=== PATIENT | female | born 1960 | race Caucasian/White ===

== ENCOUNTER 2017-01-27 13:48 | Emergency (ER) | payer OTHER ==
--- NOTE | 2017-01-27 15:48 | DIAGNOSTIC IMAGING REPORT ---
PROCEDURE: CT ABDOMEN/PELVIS W/O CONTRAST INDICATION: ABDOMINAL PAIN TECHNIQUE: Axial CT images were obtained through the abdomen and pelvis without IV contrast. Coronal and sagittal reformations were created. COMPARISON: 06/01/2006 FINDINGS: Clear lung bases. Normal sized heart. No hiatal hernia. The unenhanced appearance of the liver, gallbladder, adrenal glands, kidneys, pancreas and spleen is normal. The abdominal aorta is normal in its course and caliber with moderate to heavy distal aortic and biiliac atherosclerosis. There are no suspicious calcifications, retroperitoneal adenopathy or masses. The stomach and small bowel are normal. There is a long segments of colonic decompression, wall thickening, and mild pericolonic inflammation (15 cm) involving the descending colon to the proximal sigmoid. No extraluminal gas, diverticula, or adjacent fluid. Elsewhere in the colon, there are multiple areas of solid retained stool. The rectum is decompressed. The unenhanced appearance of the uterus, ovaries, urinary bladder, pelvic vessels, and pelvic bowel loops is normal. Normal appendix. No suspicious calcifications, free pelvic fluid or mass. Intact osseous structures. IMPRESSION: 1. Nonspecific, long segment colitis involving the descending colon. No evidence of adjacent perforation or abscess. Likely infectious or inflammatory. 2. Moderate retained solid stool throughout the colon. 3. Moderate atherosclerotic calcification in the distal aorta at the bifurcation may result in lower extremity inflow disease. Correlate clinically. 4. Findings discussed with Sharath Marlow in the emergency room. All CT scans at this facility use dose modulation, iterative reconstruction, and/or weight-based dosing when appropriate to reduce radiation dose to as low as reasonably achievable.
--- NOTE | 2017-01-27 16:21 | ED ORDER SUMMARY ---
..... Patient: IRENE GOODMAN OrderSheet [facility] VisitID: [id number] [address] [place] [address] 56y, F Registration Date/Time: 01/27/2017 ORDER SHEET Weight: 57.6 kg (stated) Allergies: Erythromycin GENERAL ORDERS: CBC w Diff Urgent (14:04 01/27/2017 EKoroleva P.A.-C) (Ack 14:06 KHoerner) (14:11 JBoardley R.N.) CMP Urgent (14:04 01/27/2017 EKoroleva P.A.-C) (Ack 14:06 KHoerner) (14:11 JBoardley R.N.) UA-Culture if indicated Urgent (14:04 01/27/2017 EKoroleva P.A.-C) (Ack 14:06 KHoerner) (16:26 JRomanelli R.N.) Lipase Urgent (14:04 01/27/2017 EKoroleva P.A.-C) (Ack 14:06 KHoerner) (14:11 JBoardley R.N.) PCT (Procalcitonin) Urgent (14:04 01/27/2017 EKoroleva P.A.-C) (Ack 14:06 KHoerner) (14:11 JBoardley R.N.) Lactate, Serum Urgent (14:04 01/27/2017 EKoroleva P.A.-C) (Ack 14:06 KHoerner) (14:49 JRomanelli R.N.) CT Abd/Pel w Cont (No) (see lab) Urgent (14:30 01/27/2017 EKoroleva P.A.-C) (Ack 14:31 KHoerner) (Cancelled: Other14:49 EKoroleva P.A.-C) CT Abd/Pel wo Cont Urgent (14:49 01/27/2017 EKoroleva P.A.-C) (Ack 14:50 KHoerner) (15:05 KHoerner) MEDICATION ORDERS: Macrobid PO 100 mg (NOW) (16:20 01/27/2017 Huey Gray) (16:43 Yevgeniy Coulter) IV FLUIDS: IV NS : initial bolus 500 mL (1000 mL/hr), then 500 mL/hr for X1 (NOW); Dennis (14:03 01/27/2017 Huey Gray) (14:12 Hal R.N.) Zofran IV 4 mg (NOW) (14:10 01/27/2017 Hal Vasquez.N. per protocol) (14:13 Hal R.N.) ORDER SHEET NOTES: [Electronically signed by Radha Marlow P.A.-C (16:26 01/27/2017)] [Electronically signed by Jose Donnelly R.N. (17:13 01/27/2017)] [Electronically locked/signed by Jose Donnelly R.N. (17:13 01/27/2017)]
--- NOTE | 2017-01-27 16:21 | ED NURSING NOTES ---
Clinical Report - Nurses [facility] [place] [address] 01/27/2017 13:50 [id number] Triage time 13:55 Jan 27 2017. Acuity: LEVEL 3. Chief Complaint: ABDOMINAL PAIN and NAUSEA. Alert. FELIX COMA SCORE: [place] Coma Scale: 15- eyes open spontaneously (4); best verbal response- oriented x 4 (5); best motor response- obeys commands (6). --14:14 Jose Donnelly R.N. 13:59 01/27/17. BP: 139/97. HR: 111. RR: 16. O2 saturation: 99%. Temp: 98.3 F (oral). Pain level now: 8/10. Additional comments: LLQ abdominal pain. --14:14 Jose Donnelly R.N. Weight: 57.6 kg stated. Height/Length: 62 inches Per Patient. BMI: 23.2. --14:14 Jose Donnelly R.N. Medications Aspirin Oral (Tablet Chewable 81 mg) 1 tablet, daily. Diltiazem HCl Oral 240 mg, daily. Gabapentin Oral. --14:03 Jose Donnelly R.N. Simvastatin Oral 20 mg, daily. --14:05 Jose Donnelly R.N. Medication/allergy information source: the patient. --14:14 Jose Donnelly R.N. Allergies Erythromycin. Definite Moderate (abdominal pain) --14:09 Jose Donnelly R.N. History Arrived by private vehicle. Historian: patient. Accompanied by family. Primary physician (Sanam). ( Q Abdominal Pain. Sent by [facility] for possible diverticulitis.). Onset. (about 2 days ago). She has had nausea and abdominal pain. No vomiting or diarrhea. Last oral intake by patient was (3 days ago). 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 PAST MEDICAL HX: Immunizations: up-to-date. The patient is post-menopausal. SOCIAL HX: Light tobacco smoker (cigarette)- less than 1/2 a pack per day. No alcohol use or drug use. No recent travel. No infectious disease exposure. No known contact with a sick individual. ABUSE ASSESSMENT: No report of abuse. FALL RISK ASSESSMENT: Fall risk assessment completed. No fall risk identified. NUTRITIONAL RISK ASSESSMENT: The nutritional risk assessment revealed no deficiencies. FUNCTIONAL ASSESSMENT: Functional assessment: no impairments noted. LEARNING NEEDS ASSESSMENT: The learning needs assessment revealed no barriers. SKIN INTEGRITY ASSESSMENT: Skin integrity risk assessment completed. No skin integrity risk identified. --14:14 Jose Donnelly R.N. PROBLEMS: Upper Extremity Pain. Arrhythmia. Atypical Chest Pain. Tetanus Status. Immunizations. LNMP - Last Normal Menstrual Period. Restless Legs Syndrome. Headache. Acute Otalgia. Hypertension. Hyperlipidemia. Chronic Back Pain. --14:06 Jose Donnelly R.N. Neck Pain. --14:11 Jose Donnelly R.N. ETOH hx. Pancreatitis. --14:14 Jose Donnelly R.N. ADDITIONAL SURGERIES: Dental Surgery. Laparoscopy. Tubal Ligation. --14:06 Jose Donnelly R.N. Interventions ID and allergy band on patient. To treatment room. --14:14 Jose Donnelly R.N. PHYSICAL ASSESSMENT Ambulatory to room. GENERAL / NEURO / PSYCH: Alert. Oriented X 4. Appears in pain. HEENT: Mucous membranes are pink. RESPIRATORY: Respirations not labored. CVS: Normal sinus rhythm noted. GI / : Abdominal tenderness in the left lower quadrant. SKIN: Skin is warm and dry. --14:15 Jose Donnelly R.N. NURSING PROGRESS NOTES 14:02 01/27/2017 Site #1 started via IV in the left antecubital space with an 20g angiocath, with aseptic technique and good blood return; one attempt. Blood drawn: rainbow set. Labeled in the presence of the patient and sent to the lab. Saline lock flushed with 10 mL saline. --14:12 Maverick Kunz R.N. 14:07 01/27/2017 Started bag #1 1000 mL IV Fluids IV NS (Saline); at 1000 mL/hr over 30 minute(s) via site #1 via IV pump. Allergies verified and confirmed 5 rights. IV flushed thoroughly pre- and post-medication administration. Completed per protocol. --14:12 Maverick Kunz R.N. 14:13 01/27/2017 Zofran (Ondansetron HCl) IVP 4 mg given over 2 minute(s) via site #1. Allergies verified and confirmed 5 rights. IV patency established. IV site checked: no pain, redness, or swelling. IV flushed thoroughly pre- and post-medication administration. IVP given by RN. --14:13 Maverick Kunz R.N. Patient gowned. Reassurance given. Patient identifiers checked. Call light placed in reach. Side rails up x 2. Bed placed in lowest position. Brakes of bed on. Patient ready for evaluation- chart flagged and PA notified. --14:15 Jose Donnelly R.N. 15:29 01/27/17. BP: 114/81. HR: 99. RR: 16. O2 saturation: 96% on room air. --15:30 Jose Donnelly R.N. 15:50 01/27/17. Patient ID band checked for patient name, birthdate and medical record number: patient confirmed. Instructions provided to collect clean catch urine and patient verbalized understanding. Clean catch urine collected with return of yellow-colored alma-colored clear urine; odor is normal; sample sent to lab for urinalysis and HCG. Specimen labeled in the presence of the patient. --15:53 Jose Donnelly R.N. 15:54 01/27/17. BP: 116/71. HR: 98. RR: 16. O2 saturation: 97% on room air. --16:01 Jose Donnelly R.N. 14:07 01/27/2017 Started bag #1 1000 mL IV Fluids IV NS (Saline); bolus of 500 mL over 30 minute(s) then at 500 mL/hr over 90 minute(s) via site #1. Allergies verified and confirmed 5 rights. IV patency established. IV site checked: no pain, redness, or swelling. IV flushed thoroughly pre- and post-medication administration. --17:07 Jose Donnelly R.N. 15:45 01/27/2017 IV Fluids IV NS Discontinued: bag #1 infused. Total amount infused: 1000 mL. IV patency established. IV site checked: no pain, redness, or swelling. IV flushed thoroughly. --17:09 Jose Donnelly R.N. <<STRICKEN ENTRY-- 16:15 01/27/2017 IV Fluids IV NS Discontinued: bag #1 infused. Total amount infused: 1000 mL. IV patency established. IV site checked: no pain, redness, or swelling. IV flushed thoroughly. --17:05 Jose Donnelly R.N. --END STRIKE>> Correction. --17:09 Jose Donnelly R.N. 16:33 01/27/2017 Macrobid PO 100 mg given. --16:43 Jose Donnelly R.N. 16:40 01/27/2017 Site #1 removed upon admission. Catheter intact. Pressure dressing and bandaid applied. --17:10 Jose Donnelly R.N. DISPOSITION / DISCHARGE 16:40 01/27/17. BP: 100/78. HR: 100. RR: 16. O2 saturation: 97% on room air. Temp: 98.5 F. Pain level now: 10/06. --17:00 Jose Donnelly R.N. Departure time: 1645. --17:01 Jose Donnelly R.N. 16:45. Condition at departure: improved. No learning barriers present. Discharge instructions provided and reviewed with the patient. Reviewed medication(s) (prescription given to pt). Reviewed referral to family practice for followup. Reviewed liquid diet and clear liquid diet (try to increase your fluid intake). Patient verbalized understanding. Written instructions provided in Amharic. The patient was discharged by the physician field research assistant. She was discharged home and accompanied by statistician applied. She left the Emergency Department ambulatory and via private vehicle. Principal Secretary driving. FALL RISK ASSESSMENT: Fall risk assessment completed. No fall risk identified. --17:04 Jose Donnelly R.N. ( IV bag # 1 double-charted @ [id number]). --17:12 Jose Donnelly R.N. Locked/Released at 01/27/2017 17:13 by Jose Donnelly R.N.
--- NOTE | 2017-01-27 16:21 | ED NURSING NOTES ---
Clinical Report - Nurses Merged With [facility] [place] [address] [place] [address] 01/27/2017 13:50 [id number] Triage time 13:55 Jan 27 2017. Acuity: LEVEL 3. Chief Complaint: ABDOMINAL PAIN and NAUSEA. Alert. FELIX COMA SCORE: [place] Coma Scale: 15- eyes open spontaneously (4); best verbal response- oriented x 4 (5); best motor response- obeys commands (6). --14:14 Jose Donnelly R.N. 13:59 01/27/17. BP: 139/97. HR: 111. RR: 16. O2 saturation: 99%. Temp: 98.3 F (oral). Pain level now: 8/10. Additional comments: LLQ abdominal pain. --14:14 Jose Donnelly R.N. Weight: 57.6 kg stated. Height/Length: 62 inches Per Patient. BMI: 23.2. --14:14 Jose Donnelly R.N. Medications Aspirin Oral (Tablet Chewable 81 mg) 1 tablet, daily. Diltiazem HCl Oral 240 mg, daily. Gabapentin Oral. --14:03 Jose Donnelly R.N. Simvastatin Oral 20 mg, daily. --14:05 Jose Donnelly R.N. Medication/allergy information source: the patient. --14:14 Jose Donnelly R.N. Allergies Erythromycin. Definite Moderate (abdominal pain) --14:09 Jose Donnelly R.N. History Arrived by private vehicle. Historian: patient. Accompanied by family. Primary physician (Sanam). ( Q Abdominal Pain. Sent by [facility] for possible diverticulitis.). Onset. (about 2 days ago). She has had nausea and abdominal pain. No vomiting or diarrhea. Last oral intake by patient was (3 days ago). 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 PAST MEDICAL HX: Immunizations: up-to-date. The patient is post-menopausal. SOCIAL HX: Light tobacco smoker (cigarette)- less than 1/2 a pack per day. No alcohol use or drug use. No recent travel. No infectious disease exposure. No known contact with a sick individual. ABUSE ASSESSMENT: No report of abuse. FALL RISK ASSESSMENT: Fall risk assessment completed. No fall risk identified. NUTRITIONAL RISK ASSESSMENT: The nutritional risk assessment revealed no deficiencies. FUNCTIONAL ASSESSMENT: Functional assessment: no impairments noted. LEARNING NEEDS ASSESSMENT: The learning needs assessment revealed no barriers. SKIN INTEGRITY ASSESSMENT: Skin integrity risk assessment completed. No skin integrity risk identified. --14:14 Jose Donnelly R.N. PROBLEMS: Upper Extremity Pain. Arrhythmia. Atypical Chest Pain. Tetanus Status. Immunizations. LNMP - Last Normal Menstrual Period. Restless Legs Syndrome. Headache. Acute Otalgia. Hypertension. Hyperlipidemia. Chronic Back Pain. --14:06 Jose Donnelly R.N. Neck Pain. --14:11 Jose Donnelly R.N. ETOH hx. Pancreatitis. --14:14 Jose Donnelly R.N. ADDITIONAL SURGERIES: Dental Surgery. Laparoscopy. Tubal Ligation. --14:06 Jose Donnelly R.N. Interventions ID and allergy band on patient. To treatment room. --14:14 Jose Donnelly R.N. PHYSICAL ASSESSMENT Ambulatory to room. GENERAL / NEURO / PSYCH: Alert. Oriented X 4. Appears in pain. HEENT: Mucous membranes are pink. RESPIRATORY: Respirations not labored. CVS: Normal sinus rhythm noted. GI / : Abdominal tenderness in the left lower quadrant. SKIN: Skin is warm and dry. --14:15 Jose Donnelly R.N. NURSING PROGRESS NOTES 14:02 01/27/2017 Site #1 started via IV in the left antecubital space with an 20g angiocath, with aseptic technique and good blood return; one attempt. Blood drawn: rainbow set. Labeled in the presence of the patient and sent to the lab. Saline lock flushed with 10 mL saline. --14:12 Maverick Kunz R.N. 14:07 01/27/2017 Started bag #1 1000 mL IV Fluids IV NS (Saline); at 1000 mL/hr over 30 minute(s) via site #1 via IV pump. Allergies verified and confirmed 5 rights. IV flushed thoroughly pre- and post-medication administration. Completed per protocol. --14:12 Maverick Kunz R.N. 14:13 01/27/2017 Zofran (Ondansetron HCl) IVP 4 mg given over 2 minute(s) via site #1. Allergies verified and confirmed 5 rights. IV patency established. IV site checked: no pain, redness, or swelling. IV flushed thoroughly pre- and post-medication administration. IVP given by RN. --14:13 Maverick Kunz R.N. Patient gowned. Reassurance given. Patient identifiers checked. Call light placed in reach. Side rails up x 2. Bed placed in lowest position. Brakes of bed on. Patient ready for evaluation- chart flagged and PA notified. --14:15 Jose Donnelly R.N. 15:29 01/27/17. BP: 114/81. HR: 99. RR: 16. O2 saturation: 96% on room air. --15:30 Jose Donnelly R.N. 15:50 01/27/17. Patient ID band checked for patient name, birthdate and medical record number: patient confirmed. Instructions provided to collect clean catch urine and patient verbalized understanding. Clean catch urine collected with return of yellow-colored alma-colored clear urine; odor is normal; sample sent to lab for urinalysis and HCG. Specimen labeled in the presence of the patient. --15:53 Jose Donnelly R.N. 15:54 01/27/17. BP: 116/71. HR: 98. RR: 16. O2 saturation: 97% on room air. --16:01 Jose Donnelly R.N. 14:07 01/27/2017 Started bag #1 1000 mL IV Fluids IV NS (Saline); bolus of 500 mL over 30 minute(s) then at 500 mL/hr over 90 minute(s) via site #1. Allergies verified and confirmed 5 rights. IV patency established. IV site checked: no pain, redness, or swelling. IV flushed thoroughly pre- and post-medication administration. --17:07 Jose Donnelly R.N. 15:45 01/27/2017 IV Fluids IV NS Discontinued: bag #1 infused. Total amount infused: 1000 mL. IV patency established. IV site checked: no pain, redness, or swelling. IV flushed thoroughly. --17:09 Jose Donnelly R.N. <<STRICKEN ENTRY-- 16:15 01/27/2017 IV Fluids IV NS Discontinued: bag #1 infused. Total amount infused: 1000 mL. IV patency established. IV site checked: no pain, redness, or swelling. IV flushed thoroughly. --17:05 Jose Donnelly R.N. --END STRIKE>> Correction. --17:09 Jose Donnelly R.N. 16:33 01/27/2017 Macrobid PO 100 mg given. --16:43 Jose Donnelly R.N. 16:40 01/27/2017 Site #1 removed upon admission. Catheter intact. Pressure dressing and bandaid applied. --17:10 Jose Donnelly R.N. DISPOSITION / DISCHARGE 16:40 01/27/17. BP: 100/78. HR: 100. RR: 16. O2 saturation: 97% on room air. Temp: 98.5 F. Pain level now: 10/06. --17:00 Jose Donnelly R.N. Departure time: 1645. --17:01 Jose Donnelyl R.N. 16:45. Condition at departure: improved. No learning barriers present. Discharge instructions provided and reviewed with the patient. Reviewed medication(s) (prescription given to pt). Reviewed referral to family practice for followup. Reviewed liquid diet and clear liquid diet (try to increase your fluid intake). Patient verbalized understanding. Written instructions provided in Romansh. The patient was discharged by the physician salon shampoo assistant. She was discharged home and accompanied by transfer professor. She left the Emergency Department ambulatory and via private vehicle. Civil Division Commander Deputy Sheriff driving. FALL RISK ASSESSMENT: Fall risk assessment completed. No fall risk identified. --17:04 Jose Donnelly R.N. ( IV bag # 1 double-charted @ 5700). --17:12 Jose Donnelly R.N. Locked/Released at 01/27/2017 17:13 by Jose Donnelly R.N.
--- NOTE | 2017-01-27 16:21 | ED ORDER SUMMARY ---
..... Patient: IRENE GOODMAN OrderSheet [facility] VisitID: [id number] [address] [place] [address] 56y, F Registration Date/Time: 01/27/2017 ORDER SHEET Weight: 57.6 kg (stated) Allergies: Erythromycin GENERAL ORDERS: CBC w Diff Urgent (14:04 01/27/2017 EKoroleva P.A.-C) (Ack 14:06 KHoerner) (14:11 JBoardley R.N.) CMP Urgent (14:04 01/27/2017 EKoroleva P.A.-C) (Ack 14:06 KHoerner) (14:11 JBoardley R.N.) UA-Culture if indicated Urgent (14:04 01/27/2017 EKoroleva P.A.-C) (Ack 14:06 KHoerner) (16:26 JRomanelli R.N.) Lipase Urgent (14:04 01/27/2017 EKoroleva P.A.-C) (Ack 14:06 KHoerner) (14:11 JBoardley R.N.) PCT (Procalcitonin) Urgent (14:04 01/27/2017 EKoroleva P.A.-C) (Ack 14:06 KHoerner) (14:11 JBoardley R.N.) Lactate, Serum Urgent (14:04 01/27/2017 EKoroleva P.A.-C) (Ack 14:06 KHoerner) (14:49 JRomanelli R.N.) CT Abd/Pel w Cont (No) (see lab) Urgent (14:30 01/27/2017 EKoroleva P.A.-C) (Ack 14:31 KHoerner) (Cancelled: Other14:49 EKoroleva P.A.-C) CT Abd/Pel wo Cont Urgent (14:49 01/27/2017 EKoroleva P.A.-C) (Ack 14:50 KHoerner) (15:05 KHoerner) MEDICATION ORDERS: Macrobid PO 100 mg (NOW) (16:20 01/27/2017 Huey Gray) (16:43 Yevgeniy Coulter) IV FLUIDS: IV NS : initial bolus 500 mL (1000 mL/hr), then 500 mL/hr for X1 (NOW); Dennis (14:03 01/27/2017 Huey Gray) (14:12 Hal R.N.) Zofran IV 4 mg (NOW) (14:10 01/27/2017 Hal Vasquez.N. per protocol) (14:13 Hal R.N.) ORDER SHEET NOTES: [Electronically signed by Radha Marlow P.A.-C (16:26 01/27/2017)] [Electronically signed by Jose Donnelly R.N. (17:13 01/27/2017)] [Electronically locked/signed by Jose Donnelly R.N. (17:13 01/27/2017)]
--- NOTE | 2017-01-27 16:21 | ED CLINICAL REPORT ---
Clinical Report - Physicians/Mid Levels [facility] [address] [place] [address] 01/27/2017 13:50 Patient: IRENE GOODMAN Time Seen: 14:09 Jan 27 2017. Arrived- By private vehicle. Historian- patient. HISTORY OF PRESENT ILLNESS Chief Complaint: ABDOMINAL PAIN. It is described as "pain". This started 3 days [employer] and is still present. The patient has had nausea. No vomiting or diarrhea. (Patient presents with abdominal pillow last 3 days worsening. The child reports pain is in the left aspect. Denies any nausea vomiting or diarrhea. Denies history of similar. Denies any recent antibiotics. Denies any sick contacts or any recent exposures. NO melana. NO hematochezia. Denies any shortness of breath or chest pain or palpitations.). REVIEW OF SYSTEMS No constipation, black stools, difficulty with urination, pain with urination or fever. No chest pain or chills. All systems otherwise negative, except as recorded above. PAST HISTORY No history of gallstones or bowel obstruction. Problems: ETOH hx. Pancreatitis. Neck Pain. Arrhythmia. Atypical Chest Pain. Immunizations. LNMP - Last Normal Menstrual Period. Restless Legs Syndrome. Headache. Acute Otalgia. Hypertension. Hyperlipidemia. Chronic Back Pain. Additional Surgeries: Dental Surgery. Laparoscopy. Tubal Ligation. Medications: Simvastatin Oral 20 mg, daily. Aspirin Oral (Tablet Chewable 81 mg) 1 tablet, daily. Diltiazem HCl Oral 240 mg, daily. Gabapentin Oral. Allergies: Erythromycin. Definite Moderate (abdominal pain). SOCIAL HISTORY Smoker- current status unknown. No alcohol use or drug use. ADDITIONAL NOTES The nursing notes have been reviewed. PHYSICAL EXAM Vital Signs: 01/27/2017 13:59 BP: 139/97. HR: 111. RR: 16. O2 saturation: 99%. Temp: 98.3 F. Pain level now: 8/10. Appearance: Alert. No acute distress. Appears to be in pain. Patient in apparent distress. Eyes: Eyes normal inspection. ENT: Ears normal. Nose normal. Neck: Normal inspection. CVS: Tachycardia. Respiratory: No respiratory distress. Breath sounds normal. Abdomen: Moderate tenderness in the left lower quadrant. No mass. Neuro: Oriented X 3. LABS, X-RAYS, AND EKG Abdominal CT: IMPRESSION: 1. Nonspecific, long segment colitis involving the descending colon. No evidence of adjacent perforation or abscess. Likely infectious or inflammatory. 2. Moderate retained solid stool throughout the colon. 3. Moderate atherosclerotic calcification in the distal aorta at the bifurcation may result in lower extremity inflow disease. Correlate clinically. 4. Findings discussed with Shraath Marlow in the emergency room. All CT scans at this facility use dose modulation, iterative reconstruction, and/or weight-based dosing when appropriate to reduce radiation dose to as low as reasonably achievable. Electronically Final signed by:Belkys Menchaca MD 01/27/2017 3:43:29 PM. Laboratory Tests: UA-Culture if indicated: (CHERYLE: 01/27/2017 15:45) ( MsgRcvd 01/27/2017 16:16) Final results Test Result Flag Units (Reference) URINE COLOR JOELLEN URINE APPEARANCE SL CLOUDY URINE GLUCOSE NEGATIVE (NEGATIVE) URINE BILIRUBIN ICTOTEST NEGATIVE (NEGATIVE) URINE KETONE 2+ (NEGATIVE) URINE SPECIFIC GRAVITY 1.025 (1.010-1.030) URINE PH 6.0 (5.0-8.0) URINE PROTEIN TRACE (NEGATIVE) URINE UROBILINOGEN 0.2 EU/dL (0.2-1.0) URINE NITRITE NEGATIVE (NEGATIVE) URINE BLOOD 3+ (NEGATIVE) URINE LEUK ESTERASE POSITIVE (NEGATIVE) URINE RBC 1-3 rbc/hpf (0-1) URINE WBC 10-15 wbc/hpf (0-1) URINE EPITHELIAL CELLS 0-1 EPI/hpf (0-5) URINE BACTERIA FEW (1+) (NONE SEEN) URINE COMMENT CULTURE INDICATED 2+ MUCUSURINE CULTURES ARE SET-UP BASED ON THE FOLLOWING CRITERIA:POSITIVE NITRITEPOSITIVE LEUKOCYTE ESTERASEGREATER THAN 10 WHITE BLOOD CELLSMODERATE (2+) OR GREATER BACTERIA CBC w Diff: (CHERYLE: 01/27/2017 14:05) ( MsgRcvd 01/27/2017 14:23) Final results Test Result Flag Units (Reference) WHITE BLOOD COUNT 16.4 H K/uL (4.5-11.5) RED BLOOD COUNT 5.35 H M/uL (4.00-5.20) HEMOGLOBIN 15.4 gm/dL (12.0-16.0) HEMATOCRIT 46.0 % (36.0-46.0) MEAN CELL VOLUME 86 fL (80-100) MEAN CORPUSCULAR HGB 29 pg (26-34) MEAN CORPUSCULAR HGB CONC 34 g/dL (31-37) RED CELL DISTRIBUTION WIDTH 12.5 % (11.6-14.8) PLATELET COUNT 359 K/uL (150-400) NEUTROPHIL % 62.5 % (50-75) LYMPH % 28.8 % (25-40) MONO % 8.0 % (3-14) EOSINOPHIL % 0.2 % (0-4) BASOPHIL % 0.5 % (0-2) Lactate, Serum: (CHERYLE: 01/27/2017 14:24) ( [facility] 01/27/2017 14:55) Final results Test Result Flag Units (Reference) LACTIC ACID 1.9 mmol/L (0.4-2.0) [id number]: (CHERYLE: 01/27/2017 14:05) ( [facility] 01/27/2017 14:58) Final results Test Result Flag Units (Reference) PROCALCITONIN <0.5 ng/mL (0-0.5) PCT Concentration: Interpretation : Risk/option for action PCT <=0.5 ng/mL : Systemic : Low risk forinfection(sepsis): progression to severeis not likely. : systemic infection.Local bacterial : CAUTION-PCT levelsinfection is : below 0.5 ng/mL do notpossible. : exclude an infection,because localizedinfections (withoutsystemic signs) may beassociated with suchlow levels. If PCT ismeasured very earlyafter a bacterialchallenge (usually <6hours), these valuesmay still be low. Inthis case PCT shouldbe re-assessed 6-24hours later. PCT >0.5 and : Systemic infection: Moderate risk for<= 2 ng/mL : (sepsis) is : progression to severepossible, but : systemic infection.other conditions : The patient should beare known to : closely monitoredelevate PCT. : both clinically andby re-assessing PCTwithin 6-24 hours. PCT > 2 ng/mL : Systemic infection: High risk for(sepsis) is likely: progression to severeunless other : systemic infection.causes are known. : PCT >= 10 ng/mL : Important systemic: High likelihood ofinflammatory : severe sepsis orresponse, almost : septic shock.exclusively due to:severe bacterial :sepsis or septic :shock. : CMP: (CHERYLE: 01/27/2017 14:05) ( MsgRcvd 01/27/2017 14:30) Final results Test Result Flag Units (Reference) GLUCOSE 105 mg/dL (70-110) BUN 14 mg/dL (7-18) CREATININE 1.0 mg/dL (0.6-1.3) Estimated GFR >60 mL/min Estimated GFR- >60 mL/min Note: Persistent reduction over 3 months in eGFR<60 mL/min/1.73 m2 defines CKD. Patients with eGFR values>=60 mL/min/1.73 m2 may also have CKD if evidence ofpersistent proteinuria. Additional information may be foundat www.kidney.org. SODIUM 136 mmol/L (136-145) POTASSIUM 3.2 L mmol/L (3.5-5.1) CHLORIDE 96 L mmol/L (98-107) CARBON DIOXIDE 26 mmol/L (21-32) CALCIUM 9.1 mg/dL (8.5-10.1) TOTAL PROTEIN 8.6 H g/dL (6.4-8.2) ALBUMIN 3.7 g/dL (3.3-5.0) BILIRUBIN, TOTAL 0.5 mg/dL (0.0-1.0) ALKALINE PHOSPHATASE 78 U/L (46-116) AST (SGOT) 14 L U/L (15-37) ALT (SGPT) 19 U/L (12-78) LIPASE 85 U/L (73-393) . PROGRESS AND PROCEDURES Course of Care: With hydration, patient had resolution of her tachycardia. Left-sided abdominal pain no diarrhea or constipation. CT was signs of colitis, no signs of diverticulitis, perforation or anything requiring immediate antibiotics. Patient is very stable. Signs of cystitis in addition to all of this. During the time in the ED, the following DDX were considered: acute surgical abdomen, hemodynamic or metabolic instability, dehydration, gastroenteritis-viral, food borne, or bacterial, food intolerance, irritable or inflammatory bowel, infection, sepsis. 01/27/2017 15:54 BP: 116/71. HR: 98. RR: 16. O2 saturation: 97%. 01/27/2017 15:29 BP: 114/81. HR: 99. RR: 16. O2 saturation: 96%. Patient is stable. Symptoms better. Patient/family counseled. Disposition: Discharged. CLINICAL IMPRESSION Abdominal pain. Acute gastroenteritis. Constipation Cystitis. INSTRUCTIONS Drink plenty of fluids. Prescription Medications: Zofran (orally disintegrating tablets) 4 mg: take 1 orally every 6 hours for 3 days as needed for nausea. Dispense ten (10). No refill. Substitution is permissible. OTC Medications: Milk of Magnesia (1200 mg/15mL) liquid (available over the counter): take 1 tablespoon (15mL) orally every 12 hours for 5 days, as needed for constipation. Dispense one (1) 26 oz. bottle. No refill. Substitution is permissible. Follow-up: Follow up with your doctor in two. (Electronically signed by Radha Marlow P.A.-C 01/27/2017 16:26)
--- NOTE | 2017-01-27 17:13 | ED DISCHARGE INSTRUCTIONS ---
Patient: IRENE GOODMAN General Instructions [facility] VisitID: [id number] [address] [place] [address] 56y, F Registration Date/Time: 01/27/2017 Abdominal pain. Acute gastroenteritis. Constipation Cystitis. INSTRUCTIONS Drink plenty of fluids. Prescription Medications: Zofran (orally disintegrating tablets) 4 mg: take 1 orally every 6 hours for 3 days as needed for nausea. Dispense ten (10). No refill. Substitution is permissible. OTC Medications: Milk of Magnesia (1200 mg/15mL) liquid (available over the counter): take 1 tablespoon (15mL) orally every 12 hours for 5 days, as needed for constipation. Dispense one (1) 26 oz. bottle. No refill. Substitution is permissible. Follow-up: Follow up with your doctor in two. ADDITIONAL INFORMATION Abdominal Pain, Unknown Cause (Female) The exact cause of your abdominal (stomach) pain is not certain. This does not mean that this is something to worry about, or the right tests were not done. Everyone likes to know the exact cause of the problem, but sometimes with abdominal pain, there is no clear-cut cause, and this could be a good thing. The good news is that your symptoms can be treated, and you will feel better. Your condition does not seem serious now; however, sometimes the signs of a serious problem may take more time to appear. For this reason,it is important for you to watch for any new symptoms, problems,or worsening of your condition. Over the next few days, the abdominal pain may come and go, or be continuous. Other common symptoms can include nausea and vomiting. Sometimes it can be difficult to tell if you feel nauseous, you may just feel bad and not associate that feeling with nausea. Constipation, diarrhea, and a fever may go along with the pain. The pain may continue even if treated correctly over the following days. Depending on how things go, sometimes the cause can become clear and may require further or different treatment. Additional evaluations, medications, or tests may be needed. Home care Your health care provider may prescribe medications for pain, symptoms, or an infection. Follow the health care provider's instructions for taking these medications. General care Rest until your next exam. No strenuous activities. Try to find positions that ease discomfort. A small pillow placed on the abdomen may help relieve pain. Something warm on your abdomen (such as a heating pad) may help, but be careful not to burn yourself. Diet Do not force yourself to eat, especially if having cramps, vomiting, or diarrhea. Water is important so you do not get dehydrated. Soup may also be good. Sports drinks may also help, especially if they are not too acidic. Make sure you don't drink sugary drinks as this can make things worse. Take liquids in small amounts. Do not guzzle them. Caffeine sometimes makes the pain and cramping worse. Avoid dairy products if you have vomiting or diarrhea. Don't eat large amounts at a time. Wait a few minutes between bites. Eat a diet low in fiber (called a low-residue diet). Foods allowed include refined breads, white rice, fruit and vegetable juices without pulp, tender meats. These foods will pass more easily through the intestine. Avoid whole-grain foods, whole fruits and vegetables, meats, seeds and nuts, fried or fatty foods, dairy, alcohol and spicy foods until your symptoms go away. Follow-up care Follow up with your health care provider as instructed, or if your pain does not begin to improve in the next 24 hours. When to seek medical care Seek prompt medical care if any of the following occur: Pain gets worse or moves to the right lower abdomen New or worsening vomiting or diarrhea Swelling of the abdomen Unable to pass stool for more than three days Fever of 100.4F (38C) or higher, or as directed by your healthcare provider. Blood in vomit or bowel movements (dark red or black color) Jaundice (yellow color of eyes and skin) Weakness, dizziness Chest, arm, back, neck or jaw pain Unexpected vaginal bleeding or missed period Call 911 Call emergency services if any of the following occur: Trouble breathing Confusion Fainting or loss of consciousness Rapid heart rate Seizure Viral Gastroenteritis (6Yr-Adult) Gastroenteritis is another name for thestomach flu.It is most often caused by a virus that affects the stomach and intestinal tract. Symptoms include stomach cramping and fever, vomiting and/or diarrhea, and can last from 2 to 7 days. The danger from repeated vomiting or diarrhea is dehydration. This is the loss of too much water and minerals from the body. When this occurs, body fluids must be replaced. Antibiotics are not effective for this illness, but simple home treatment will be helpful. Home Care If symptoms are severe, rest at home for the next 24 hours. Avoid tobacco, caffeine, and alcohol use, which can worsen symptoms. Acetaminophen (Tylenol) or ibuprofen (Motrin, Advil) may be usedfor fever or pain unless another medication was prescribed. NOTE: If you have chronic liver or kidney disease or ever had a stomach ulcer or GI bleeding, talk with your doctor before using these medicines. Aspirin should never be used in anyone under 18 years of age who is ill with a fever. It may cause severe liver damage. If medicines for diarrhea or vomiting were prescribed, be sure they are takenonly as directed. If vomiting, drink small amounts of clear fluids (such as water, sports drinks, clear sodas) at frequent intervals to prevent dehydration. Start with 1 to 2 tablespoons every 10 minutes. Once vomiting stops, follow these guidelines: During The First 12 To 24 Hours follow the diet below: Beverages: Sport drinks like Gatorade, soft drinks without caffeine; dorene eliz, mineral water (plain or flavored), decaffeinated tea and coffee. Soups: Clear broth, consomm and bouillon Desserts: Plain gelatin (Jell-O), Popsicles and fruit juice bars. During The Next 24 Hours you may add the following to the above: Hot cereal, plain toast, bread, rolls, crackers Plain noodles, rice, mashed potatoes, chicken noodle or rice soup Unsweetened canned fruit (avoid pineapple), bananas Limit fat intake to less than 15 grams per day by avoiding margarine, butter, oils, mayonnaise, sauces, gravies, fried foods, peanut butter, meat, poultry, and fish. Limit fiber; avoid raw or cooked vegetables, fresh fruits (except bananas), and bran cereals. Limit caffeine and chocolate. Do not use spices or seasonings except salt. During The Next 24 Hours The patient can gradually resume a normal diet as symptoms lessen. Preventing Spread Hand washing with soap and water is the best way to prevent the spread of viruses. Caregivers should wash their hands before andafter touching the sick person. The sick person, as well as everyone in the family,should wash their hands after using the toilet and before meals. Clean the toilet after each use. People with diarrhea should not prepare food for others. If you are preparing your own foods, wash your hands before and after. Follow Up with your doctor as advised. Call your doctor if you are not improving over the next 2 to 3 days. If a stool (diarrhea) sample was taken, you may call in 2 days (or as directed) for the results. Get Prompt Medical Attention if any of the following occur: Increasing abdominal pain Continued vomiting (unable to keep liquids down) Frequent diarrhea (more than 5 times a day) Blood in vomit or stool (black or red color) Dark urine, reduced urine output, or extreme thirst Weakness, dizziness, fainting Drowsiness, confusion, stiff neck, or seizure Fever of 100.4F (38C) oral or higher, not better with fever medication New rash Constipation (Adult) Constipation is bowel movements that are less frequent than usual. Stools often become very hard and difficult to pass. This may lead to abdominal pain and bloating. It may also cause painful bowel movements. Constipation may be due to a diet thats low in fiber. Some medications, especially pain medications, can also cause it. Constipation may be treated with enemas, suppositories, laxatives or stool softeners. Your doctor will advise you which will work best for you. Follow the advice below to help avoid this problem in the future. Home Care Medication: Take any medicines as directed. Some laxatives are safe only for occasional use. Others can be taken on a regular basis. Talk to your doctor or pharmacist if you have questions. General Care: Prescription pain medications can cause constipation. If you are prescribed pain medications, ask the doctor whether you should also take a stool softener. A diet high in fiber with plenty of fluids helps to maintain regular, soft bowel movements. The following foods are good sources of dietary fiber: Cereals and breads: Whole grain cereal with bran, oatmeal, rolled oats, whole grain breads Fruits: All fruits (fresh and dried), raisins, prunes, apricots, berries, figs Vegetables: Any fresh vegetables, especially peas, broccoli, brussels sprouts, winter squash, green beans, cauliflower, martinez beans, carrots Other: Popcorn, brown rice Drink plenty of water when you increase the amount of fiber you eat. Follow Up with your doctor or return to this facility if symptoms do not improve in the next few days. You may require further tests or a referral to a specialist. Get Prompt Medical Attention if any of the following occur: Fever over 100.4F (38C) Failure to resume normal bowel movements Increasing abdominal or back pain Nausea or vomiting Abdominal swelling Blood in the stool Weakness, dizziness or fainting Unexpected vaginal bleeding Bladder Infection,Female (Adult) A bladder infection ("cystitis" or "UTI") usually causes a constant urge to urinate and a burning when passing urine. Urine may be cloudy, smelly or dark. There may be pain in the lower abdomen. A bladder infection occurs when bacteria from the vaginal area enter the bladder opening (urethra). This can occur from sexual intercourse, wearing tight clothing, dehydration and other factors. Home Care: Drink lots of fluids (at least 6-8 glasses a day, unless you must restrict fluids for other medical reasons). This will force the medicine into your urinary system and flush the bacteria out of your body. Avoid sexual intercourse until your symptoms are gone. Avoid caffeine, alcohol and spicy foods. These can irritate the bladder. A bladder infection is treated with antibiotics. You may also be given Pyridium (generic = phenazopyridine) to reduce the burning sensation. This medicine will cause your urine to become a bright orange color. The orange urine may stain clothing. You may wear a pad or panty-liner to protect clothing. Preventing Future Infections: Always wipe from front to back after a bowel movement. Keep the genital area clean and dry. Drink plenty of fluids each day to avoid dehydration. Both sexual partners should wash before intercourse. Urinate right after intercourse to flush out the bladder. Wear cotton underwear and cotton-lined panty hose; avoid tight-fitting pants. If you are on control pills and are having frequent bladder infections, discuss with your doctor. Follow Up: Return to this facility or see your doctor if ALL symptoms are not gone after three days of treatment. Get Prompt Medical Attention if any of the following occur: Fever of 100.4F (38C) or higher, or as directed by your healthcare provider No improvement by the third day of treatment Increasing back or abdominal pain Repeated vomiting; unable to keep medicine down Weakness, dizziness or fainting Vaginal discharge Pain, redness or swelling in the labia (outer vaginal area) [place] Diet A bland diet is used for patients with an upset stomach. It consists of foods that are mild and easy to digest. It is better to eat small frequent meals rather than three large meals a day. BEVERAGES OK: Fruit juices, non-caffeinated teas and coffee, non-carbonated addison AVOID: Carbonated beverage, caffeinated tea and coffee, all alcoholic beverages BREAD OK: Refined white, wheat or rye bread, jose l or soda crackers, [place] toast, plain rolls, bagels AVOID: Whole-grain bread CEREAL OK: Refined cereals: cooked or ready to eat AVOID: Whole grain cereals and granola, or those containing bran, seeds or nuts DESSERTS OK: Peanut butter and all others except those to "avoid" AVOID: Chocolate, cocoa, coconut, popcorn, nuts, seeds, jam, marmalade FRUITS OK: Canned, cooked, frozen or fresh fruits without seeds or tough skin AVOID: Olives, skin and seeds of fruit MEATS OK: All fresh or preserved meat, fish and fowl AVOID: Any that are prepared with those spices to "avoid" CHEESE & EGGS OK: Eggs, cottage cheese, cream cheese, other cheeses AVOID: All cheeses made with those spices to "avoid" POTATOES & PASTA OK: Potato, rice, macaroni, noodles, spaghetti AVOID: None SOUPS OK: All soups without heavy seasoning AVOID: Soups made with those spices to "avoid" VEGETABLES OK: Canned, cooked, fresh or frozen mildly flavored vegetables without seeds, skins or coarse fiber AVOID: Vegetables prepared with those spices to "avoid"; skin and seeds of vegetables and those with coarse fiber SPICES OK: Salt, lemon and [place] juice, vinegar, all extracts, gil, cinnamon, thyme, mace, allspice, paprika AVOID: [place] powder, cloves, pepper, seed spices, garlic, gravy pickles, highly seasoned salad dressings Clear Liquid Diet Clear liquids are any liquid that you can see through as well as those that are very easy to digest. This is used while the body is recovering from irritation or infection of the stomach or intestinal tract. It may also be used before special procedures or surgery. This diet is to be used no more than three days. You may include the following items. Adults Adults should drink a total of 23 quarts of liquid per day. It may be easier to drink small frequent servings rather than a few large ones. Liquids can include: Fruit juices.Strained orange juice or lemonade (no pulp), apple, grape and cranberry juice, clear fruit drinks, sports drinks Beverages.Sport drinks, sodas, mineral water (plain or flavored), tea, black coffee, liquid gelatin (add twice the recommended amount of water) Soups.Clear broth, consomm, bouillon Desserts.Plain gelatin, popsicles, fruit juice bars Children Over 2 years old The following liquids are acceptable for children over age 2: Fruit juices.Strained orange juice or lemonade (no pulp), apple, grape and cranberry juice, clear fruit drinks Beverages. Sports drinks, sodas, mineral water (plain or flavored), tea, liquid gelatin (add twice the recommended amount of water) Soups. Clear broth, consomm, bouillon Desserts. Plain gelatin, popsicles, fruit juice bars Children under 2 years old Oral rehydration fluids such are available at drug stores and most grocery stores without a prescription. Ondansetron Hydrochloride Oral tablet What is this medicine? ONDANSETRON (on TEODORA se pepito) is used to treat nausea and vomiting caused by chemotherapy. It is also used to prevent or treat nausea and vomiting after surgery. How should I use this medicine? Take this medicine by mouth with a glass of water. Follow the directions on your prescription label. Take your doses at regular intervals. Do not take your medicine more often than directed. Talk to your customer associate regarding the use of this medicine in children. Special care may be needed. What side effects may I notice from receiving this medicine? Side effects that you should report to your doctor or health animal care supervisor as soon as possible: allergic reactions like skin rash, itching or hives, swelling of the face, lips or tongue breathing problems dizziness fast or irregular heartbeat feeling faint or lightheaded, falls fever and chills swelling of the hands or feet tightness in the chest Side effects that usually do not require medical attention (report to your doctor or health animal care supervisor if they continue or are bothersome): constipation or diarrhea headache What may interact with this medicine? Do not take this medicine with any of the following medications: -apomorphine -cisapride -dofetilide -dronedarone -pimozide -thioridazine -ziprasidone This medicine may also interact with the following medications: -carbamazepine -phenytoin -rifampicin -tramadol -other medicines that prolong the QT interval (cause an abnormal heart rhythm) What if I miss a dose? If you miss a dose, take it as soon as you can. If it is almost time for your next dose, take only that dose. Do not take double or extra doses. Where should I keep my medicine? Keep out of the reach of children. Store between 2 and 30 degrees C (36 and 86 degrees F). Throw away any unused medicine after the expiration date. What should I tell my health care provider before I take this medicine? They need to know if you have any of these conditions: heart disease history of irregular heartbeat liver disease low levels of magnesium or potassium in the blood an unusual or allergic reaction to ondansetron, granisetron, other medicines, foods, dyes, or preservatives or trying to get breast-feeding What should I watch for while using this medicine? Check with your doctor or health animal care supervisor right away if you have any sign of an allergic reaction. You have been given the following additional information: Abdominal Pain, Unknown Cause, (Female) Gastroenteritis, Viral (6Y-Adult) Constipation (Adult) Bladder Infection, Female (Adult) Diet, [place] (Adult) Diet, Clear Liquid Ondansetron Hydrochloride Oral tablet (Electronically signed by Radha Marlow P.A.-C 01/27/2017 16:26)
--- NOTE | 2017-01-27 17:14 | ED MED RECONCILIATION SUMMARY ---
Patient: IRENE GOODMAN Medication Reconciliation Report [facility] VisitID: [id number] [address] [place] [address] 56y, F Registration Date/Time: 01/27/2017 Weight: 57.6 kg Height/Length: 62 in. BMI: 23.2 ALLERGIES: Erythromycin The patient's Home Medications are listed below: THE FOLLOWING MEDICATIONS NEED TO BE RECONCILED: Aspirin Oral (81 mg) 1 tablet, daily Diltiazem HCl Oral 240 mg, daily Gabapentin Oral Simvastatin Oral 20 mg, daily The source(s) of the original Home Medication information: patient The following Medications were given to the patient in the Emergency Department: IV NS IV Fluids bolus 0, then 1000 mL/hr, administered: 01/27/2017 2:07:00 PM Zofran [IVP] IVP 4 mg, administered: 01/27/2017 2:13:00 PM Macrobid [PO] PO 100 mg, administered: 01/27/2017 4:33:00 PM IV NS IV Fluids bolus 500 mL over 30 minute(s), then 500 mL/hr, administered: 01/27/2017 2:07:00 PM The following Medications were prescribed to the patient: Zofran (orally disintegrating tablets) 4 mg: take 1 orally every 6 hours for 3 days as needed for nausea. Dispense ten (10). No refill. Substitution is permissible. -- Radha Marlow, P.A.-C Milk of Magnesia (1200 mg/15mL) liquid (available over the counter): take 1 tablespoon (15mL) orally every 12 hours for 5 days, as needed for constipation. Dispense one (1) 26 oz. bottle. No refill. Substitution is permissible. -- Radha Marlow, P.A.-C
--- NOTE | 2017-01-27 17:14 | ED MAR SUMMARY ---
..... Medication Administration Record [facility] [address] [place] [address] Patient: IRENE GOODMAN Visit ID: [id number] 56y, F Weight: 57.6 kg Height/Length: 62 in BMI: 23.2 ALLERGIES: Erythromycin Start 14:07 01/27/2017 Maverick Kunz R.N., Stop 15:45 01/27/2017 Jose Donnelly R.N. Medication Administered: IV NS (SALINE), Dose: IV Fluids over 30 minute(s), Rate: 1000 mL/hr, Dispensed: 1000 mL bag, Site: #1 left AC. Medication Ordered: IV NS : initial bolus 500 mL (1000 mL/hr), then 500 mL/hr for X1 (NOW); Dennis. Start 14:07 01/27/2017 Jose Donnelly R.N. Medication Administered: IV NS (SALINE), Dose: IV Fluids over 90 minute(s), Rate: 500 mL/hr, Bolus: 500 mL over 30 minute(s), Dispensed: 1000 mL bag, Site: #1 left AC. Medication Ordered: IV NS : initial bolus 500 mL (1000 mL/hr), then 500 mL/hr for X1 (NOW); Dennis. Given 14:13 01/27/2017 Maverick Kunz R.N. Medication Administered: ZOFRAN [IVP] (ONDANSETRON HCL), Dose: 4 mg IVP over 2 minute(s), Site: #1 left AC. Medication Ordered: Zofran IV 4 mg (NOW). Given 16:33 01/27/2017 Jose Donnelly R.N. Medication Administered: MACROBID [PO], Dose: 100 mg PO. Medication Ordered: Macrobid PO 100 mg (NOW).
--- NOTE | 2017-01-27 17:14 | ED MED RECONCILIATION SUMMARY ---
Patient: IRENE GOODMAN Medication Reconciliation Report [facility] VisitID: [id number] [address] [place] [address] 56y, F Registration Date/Time: 01/27/2017 Weight: 57.6 kg Height/Length: 62 in. BMI: 23.2 ALLERGIES: Erythromycin The patient's Home Medications are listed below: THE FOLLOWING MEDICATIONS NEED TO BE RECONCILED: Aspirin Oral (81 mg) 1 tablet, daily Diltiazem HCl Oral 240 mg, daily Gabapentin Oral Simvastatin Oral 20 mg, daily The source(s) of the original Home Medication information: patient The following Medications were given to the patient in the Emergency Department: IV NS IV Fluids bolus 0, then 1000 mL/hr, administered: 01/27/2017 2:07:00 PM Zofran [IVP] IVP 4 mg, administered: 01/27/2017 2:13:00 PM Macrobid [PO] PO 100 mg, administered: 01/27/2017 4:33:00 PM IV NS IV Fluids bolus 500 mL over 30 minute(s), then 500 mL/hr, administered: 01/27/2017 2:07:00 PM The following Medications were prescribed to the patient: Zofran (orally disintegrating tablets) 4 mg: take 1 orally every 6 hours for 3 days as needed for nausea. Dispense ten (10). No refill. Substitution is permissible. -- Radha Marlow, P.A.-C Milk of Magnesia (1200 mg/15mL) liquid (available over the counter): take 1 tablespoon (15mL) orally every 12 hours for 5 days, as needed for constipation. Dispense one (1) 26 oz. bottle. No refill. Substitution is permissible. -- Radha Marlow, P.A.-C
--- NOTE | 2017-01-27 17:14 | ED MAR SUMMARY ---
..... Medication Administration Record [facility] [address] [place] [address] Patient: IRENE GOODMAN Visit ID: [id number] 56y, F Weight: 57.6 kg Height/Length: 62 in BMI: 23.2 ALLERGIES: Erythromycin Start 14:07 01/27/2017 Maverick Kunz R.N., Stop 15:45 01/27/2017 Jose Donnelly R.N. Medication Administered: IV NS (SALINE), Dose: IV Fluids over 30 minute(s), Rate: 1000 mL/hr, Dispensed: 1000 mL bag, Site: #1 left AC. Medication Ordered: IV NS : initial bolus 500 mL (1000 mL/hr), then 500 mL/hr for X1 (NOW); Dennis. Start 14:07 01/27/2017 Jose Donnelly R.N. Medication Administered: IV NS (SALINE), Dose: IV Fluids over 90 minute(s), Rate: 500 mL/hr, Bolus: 500 mL over 30 minute(s), Dispensed: 1000 mL bag, Site: #1 left AC. Medication Ordered: IV NS : initial bolus 500 mL (1000 mL/hr), then 500 mL/hr for X1 (NOW); Dennis. Given 14:13 01/27/2017 Maverick Kunz R.N. Medication Administered: ZOFRAN [IVP] (ONDANSETRON HCL), Dose: 4 mg IVP over 2 minute(s), Site: #1 left AC. Medication Ordered: Zofran IV 4 mg (NOW). Given 16:33 01/27/2017 Jose Donnelly R.N. Medication Administered: MACROBID [PO], Dose: 100 mg PO. Medication Ordered: Macrobid PO 100 mg (NOW).
== END 2017-01-27 16:45 | disposition home or self-care (01) ==
LOC: ED SRH 13:48
DX: K52.9 Noninfective gastroenteritis and colitis, unspecified (principal); N30.90 Cystitis, unspecified without hematuria; K59.00 Constipation, unspecified; R10.32 Left lower quadrant pain; E78.5 Hyperlipidemia, unspecified; I10 Essential (primary) hypertension; Z79.899 Other long term (current) drug therapy; Z72.0 Tobacco use; Z88.1 Allergy status to other antibiotic agents
CPT/HCPCS: 90004; 90074; 90100; 90469; 90627; 92031; 92235; 93004; 95059